=== PATIENT | female | born 1980 | race Caucasian/White ===

== ENCOUNTER 2019-01-15 20:43 | Emergency (ER) | payer BC, OTHER ==
[2019-01-15] MEDS ORDERED: MAGNE/ALUM HYDROXD 30 ML UCUP ONE (21:12)
[2019-01-15] MEDS ORDERED: LIDOCAINE VISCOUS 2% SOLN 15 ML UDC ONE (21:12)
[2019-01-15 21:32] LABS: Absolute Lymphocytes (CBC) 1.5 K/uL (0.7-4.9); Basophils % 0.4 % (0-1.3); Hematocrit 36.2 % (36.0-45.0); Lymphocytes % 21.6 % (15.3-44.8); MPV 10.6 fL (7.6-11.3); RBC Red Blood Cell Count 4.09 M/uL (3.86-4.86)
[2019-01-15 21:41] LABS: Urine Blood NEGATIVE (NEG); Urine Glucose NEGATIVE (NEG); Urine Protein NEGATIVE (NEG); Urine pH 6.5 (5.0-7.0)
[2019-01-15 21:43] LABS: ALT/SGPT 20 U/L (12-78); AST/SGOT 13 U/L (15-37); Alkaline Phosphatase 88 U/L (45-117); BUN Blood Urea Nitrogen 8 mg/dL (7-18); Bicarbonate 27 mmol/L (21-32); Bilirubin Direct < 0.1 mg/dL (0-0.2); Bilirubin Total 0.3 mg/dL (0.2-1.0); Glucose Level 91 mg/dL (74-106); Lipase 195 U/L (73-393); Potassium 3.7 mmol/L (3.5-5.1); Protein, Total 7.4 g/dL (6.4-8.2); Sodium Level 140 mmol/L (136-145)
[2019-01-15] MEDS ORDERED: MORPHINE 4 MG/ML SYR ONE ×2 (21:43→23:17)
[2019-01-15] MEDS ORDERED: ONDANSETRON 4 MG/2 ML VIAL ONE (21:43)
[2019-01-15 21:44] LABS: Urine Bacteria 20-50 /HPF (<20); Urine Culture Reflex Order REFLEXED; Urine RBC <5 /HPF (NONE SEEN)
--- NOTE | 2019-01-16 02:02 | EDPHYS ---
Physician Documentation [facility] Name: Wendy Altman Age: 38 yrs Sex: Female : 1980 Arrival Date: 01/15/2019 Time: 20:47 Bed 28 Private MD: ED Physician Hasmukh Garland HPI: 01/15 21:20 This 38 yrs old Female presents to ER via Ambulatory with complaints of rn Abdominal Pain. 21:20 The patient presents with abdominal pain in the right upper quadrant. Onset: The rn symptoms/episode began/occurred this morning. The symptoms do not radiate. Associated signs and symptoms: Pertinent negatives: nausea and vomiting, blood in stools, chest pain, constipation, diarrhea, dysuria, fever, shortness of breath. Modifying factors: The symptoms are alleviated by nothing, the symptoms are aggravated by touching the area. Severity of pain: At its worst the pain was moderate in the emergency department the pain has improved. The patient has experienced similar episodes in the past. Reports RUQ abd pain, began earlier today, has had a few similar episodes in past but not as bad as today, also has acid reflux and doesn't take medication regularly. NO fever/vomiting/diarrhea. . 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 - Social history:: Smoking status: Patient/guardian denies using tobacco. - Ebola Screening: : No symptoms or risks identified at this time. - Family history:: not pertinent. - Hospitalizations: : No recent hospitalization is reported. ROS: 21:21 Constitutional: Negative for fever, chills, and weight loss, Eyes: Negative for injury, rn pain, redness, and discharge, Neck: Negative for injury, pain, and swelling, Cardiovascular: Negative for chest pain, palpitations, and edema, Respiratory: Negative for shortness of breath, cough, wheezing, and pleuritic chest pain, Abdomen/GI: + abd pain Back: Negative for injury and pain, : Negative for injury, bleeding, discharge, and swelling, MS/Extremity: Negative for injury and deformity, Skin: Negative for injury, rash, and discoloration, Neuro: Negative for headache, weakness, numbness, tingling, and seizure. Exam: 21:21 Constitutional: This is a well developed, well nourished patient who is awake, alert, rn pacing room holding stomach Head/Face: Normocephalic, atraumatic. ENT: MMM Cardiovascular: Regular rate and rhythm. No pulse deficits. Respiratory: No increased work of breathing, no retractions or nasal flaring. Abdomen/GI: soft, + epigastric and RUQ tenderness, no rebound, neg mauricio MS/ Extremity: Pulses equal, no cyanosis. Neurovascular intact. Full, normal range of motion. Equal circumference. Neuro: Awake and alert, GCS 15, oriented to person, place, time, and situation. Cranial nerves II-XII grossly intact. Motor strength 5/5 in all extremities. Sensory grossly intact. Cerebellar exam normal. Normal gait. Vital Signs: 20:50 BP 153 / 107; Pulse 74; Resp 18; Temp 98.5(O); Pulse Ox 98% on R/A; Weight 74.84 kg; lp1 Height 5 ft. 0 in. (152.40 cm); Pain 7/10; 21:58 BP 147 / 90; Pulse 72; Resp 17; Pulse Ox 97% on R/A; rv 23:42 BP 140 / 76; Pulse 65; Resp 16; Pulse Ox 96% on R/A; rv 01/16 00:39 BP 163 / 95; Pulse 64; Resp 15; Pulse Ox 99% on R/A; rv 02:10 BP 164 / 99; Pulse 66; Resp 14 S; Temp 98.4(O); Pulse Ox 99% on R/A; bb 01/15 20:50 Body Mass Index 32.22 (74.84 kg, 152.40 cm) lp1 MDM: 01/15 20:57 Patient medically screened. rn 01/16 01:57 Differential diagnosis: cholecystitis, Cholelithiasis, gastritis, gastroesophageal rn reflux disease, non-specific abd pain, pancreatitis, Peptic Ulcer Disease. Data reviewed: vital signs, nurses notes, lab test result(s), radiologic studies, CT scan, ultrasound, and as a result, I will discharge patient. Counseling: I had a detailed discussion with the patient and/or guardian regarding: the historical points, exam findings, and any diagnostic results supporting the discharge/admit diagnosis, lab results, radiology results, the need for outpatient follow up, to return to the emergency department if symptoms worsen or persist or if there are any questions or concerns that arise at home. Response to treatment: the patient's symptoms have markedly improved after treatment, and as a result, I will discharge patient. Special discussion: Based on the patient's Hx, exam, and Dx evaluation, there is no indication for emergent surgery or inpatient Tx. It is understood by the patient/guardian that if the Sx's persist or worsen they need to return immediately for re-evaluation. I discussed with the patient/guardian in detail that at this point there is no indication for admission to the hospital. It is understood, however, that if the symptoms persist or worsen the patient needs to return immediately for re-evaluation. Based on the history and exam findings, there is no indication for further emergent testing or inpatient evaluation. I discussed with the patient/guardian the need to see the primary care provider for further evaluation of the symptoms. ED course: No acute findings on labs or u/s or CT abdomen. + indeterminate left renal mass, recommend f/u for further eval. Gallbladder normal appearing without stones or infection. Epigastric pain most likely gastritis or acid related given has had it before and does not take regular medication.. 01/15 21:03 Order name: Basic Metabolic Panel; Complete Time: 22:19 rn 01/15 21:03 Order name: CBC with Diff; Complete Time: 22:19 rn 01/15 21:03 Order name: Creatinine for Radiology; Complete Time: 22:19 rn 01/15 21:03 Order name: Hepatic Function; Complete Time: 22:19 rn 01/15 21:03 Order name: Lipase; Complete Time: 22:19 rn 01/15 21:03 Order name: Urine Microscopic Only; Complete Time: 22:19 rn 01/15 21:03 Order name: US Abdomen Limited rn 01/15 21:35 Order name: Urine Dipstick--Ancillary (enter results); Complete Time: 22:19 cm6 01/15 21:35 Order name: Urine --Ancillary (enter results); Complete Time: 22:19 cm6 01/15 21:45 Order name: Urine Culture EDDE 01/15 23:16 Order name: CT Abd/Pelvis - IV Contrast Only rn 01/15 21:03 Order name: IV Saline Lock; Complete Time: 21:13 rn 01/15 21:03 Order name: Labs collected and sent; Complete Time: 21:13 rn 01/15 21:03 Order name: Urine Test (obtain specimen); Complete Time: 21:13 rn 01/15 21:03 Order name: Urine Dipstick-Ancillary (obtain specimen); Complete Time: 21:13 rn Administered Medications: 01/15 21:15 Drug: GI Cocktail without - (Maalox Suspension 30 ml, Lidocaine Liquid 2 % 15 mg2 ml) Route: PO; 23:17 Follow up: Response: Pain is unchanged, physician notified rv 21:48 Drug: morphine 4 mg {Note: rass 0.} Route: IVP; Site: left antecubital; rv 23:18 Follow up: Response: No adverse reaction; Pain is unchanged, physician notified; RASS: rv Alert and Calm (0) 21:48 Drug: Zofran 4 mg Route: IVP; Site: left antecubital; rv 23:18 Follow up: Response: No adverse reaction rv 23:20 Drug: morphine 4 mg {Note: RASS 0.} Route: IVP; Site: left antecubital; rv 01/16 00:47 Follow up: Response: Pain is decreased rv 00:47 Follow up: Response: RASS: Alert and Calm (0) rv Disposition: 01/16/19 02:00 Discharged to Home. Impression: Gastritis, unspecified, without bleeding, Upper abdominal pain, unspecified, Unspecified ovarian cysts, Left renal mass. - Condition is Stable. - Discharge Instructions: Abdominal Pain, Adult, Gastritis, Adult, Ovarian Cyst, Renal Mass. - Prescriptions for Tylenol- Codeine #3 300-30 mg Oral Tablet - take 1 tablet by ORAL route every 6 hours As needed; 15 tablet. - Medication Reconciliation Form, Thank You Letter, Antibiotic Education, Prescription Opioid Use, Work release form, Family Work Release form. - Follow up: Grabiel Banks MD; When: As needed; Reason: Recheck today's complaints, Re-evaluation by your physician. - Problem is new. - Symptoms have improved. Signatures: Dispatcher [employer] EDBrittny Song RN RN bb Nieto, Roman, MD MD rn Pena, Laura, RN RN lp1 Ruddy Suresh, RN RN mg2 Virgil Griffin, RN RN rv Corrections: (The following items were deleted from the chart) 02:11 02:00 01/16/2019 02:00 Discharged to Home. Impression: Gastritis, unspecified, without bb bleeding; Upper abdominal pain, unspecified; Unspecified ovarian cysts; Left renal mass. Condition is Stable. Forms are Medication Reconciliation Form, Thank You Letter, Antibiotic Education, Prescription Opioid Use. Follow up: Grabiel Banks; When: As needed; Reason: Recheck today's complaints, Re-evaluation by your physician. Problem is new. Symptoms have improved. rn
--- NOTE | 2019-01-16 02:02 | ER ---
Nurse's Notes [facility] Name: Wendy Altman Age: 38 yrs Sex: Female : 1980 Arrival Date: 01/15/2019 Time: 20:47 Bed 28 Private MD: Diagnosis: Gastritis, unspecified, without bleeding;Upper abdominal pain, unspecified;Unspecified ovarian cysts;Left renal mass Presentation: 01/15 20:48 Presenting complaint: Patient states: RUQ abdominal pain x 4 days, "It goes away and lp1 then it comes back"; States feeling light headed. Transition of care: patient was not received from another setting of care. Onset of symptoms was January 15, 2019. Risk Assessment: Do you want to hurt yourself or someone else? Patient reports no desire to harm self or others. Initial Sepsis Screen: Does the patient meet any 2 criteria? No. Patient's initial sepsis screen is negative. Does the patient have a suspected source of infection? No. Patient's initial sepsis screen is negative. Care prior to arrival: None. 20:48 Method Of Arrival: Ambulatory lp1 20:48 Acuity: AMOL 3 lp1 Triage Assessment: 21:23 General: Behavior is calm, cooperative. 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 - Social history:: Smoking status: Patient/guardian denies using tobacco. - Ebola Screening: : No symptoms or risks identified at this time. - Family history:: not pertinent. - Hospitalizations: : No recent hospitalization is reported. Screenin:50 Abuse screen: Denies threats or abuse. Denies injuries from another. Nutritional lp1 screening: No deficits noted. Tuberculosis screening: No symptoms or risk factors identified. Fall Risk None identified. Assessment: 21:20 General: Appears in no apparent distress. comfortable. rv 21:22 Pain: Complains of pain in right upper quadrant. Neuro: Level of Consciousness is rv awake, alert, obeys commands, Oriented to person, place, time, situation. Cardiovascular: Patient's skin is warm and dry. Respiratory: Airway is patent. GI: Bowel sounds present X 4 quads. Abd is soft and non tender X 4 quads. : No signs and/or symptoms were reported regarding the genitourinary system. EENT: No signs and/or symptoms were reported regarding the EENT system. Derm: Skin is intact, is healthy with good turgor. Musculoskeletal: No signs and/or symptoms reported regarding the musculoskeletal system. 23:42 Reassessment: Patient appears in no apparent distress at this time. Patient and/or rv family updated on plan of care and expected duration. Pain level reassessed. Patient is alert, oriented x 3, equal unlabored respirations, skin warm/dry/pink. PAIN IS UNCHANGED. REFERRED TO DR GARLAND. GIVEN SECOND DOSE OF MORPHINE. DR GARLAND DECIDED TO DO CT SCAN, EXPLAINED TO PATIENT AND RELATIVE. AWAITING CT SCAN AT THE MOMENT. 01/16 00:23 Reassessment: PRESENT IV ON THE LEFT AC IS NOT WORKING. STARTED ANOTHER IV ON THE RIGHT rv FOREARM WHILE IN THE CT SCAN. 02:08 Reassessment: Patient is alert, oriented x 3, equal unlabored respirations, skin bb warm/dry/pink. Dr Garland at bedside for discussion of findings and recommendations pt to be discharged home with RX x1 and follow-up for further evaluation and treatment with PCP. Pt verbalized understanding of and agrees to plan of care discharge instructions given pt ambulated with steady gait to exit accompanied by spouse. Vital Signs: 01/15 20:50 BP 153 / 107; Pulse 74; Resp 18; Temp 98.5(O); Pulse Ox 98% on R/A; Weight 74.84 kg; lp1 Height 5 ft. 0 in. (152.40 cm); Pain 7/10; 21:58 BP 147 / 90; Pulse 72; Resp 17; Pulse Ox 97% on R/A; rv 23:42 BP 140 / 76; Pulse 65; Resp 16; Pulse Ox 96% on R/A; rv 01/16 00:39 BP 163 / 95; Pulse 64; Resp 15; Pulse Ox 99% on R/A; rv 02:10 BP 164 / 99; Pulse 66; Resp 14 S; Temp 98.4(O); Pulse Ox 99% on R/A; bb 01/15 20:50 Body Mass Index 32.22 (74.84 kg, 152.40 cm) lp1 ED Course: 01/15 20:47 Patient arrived in ED. cf2 20:49 Triage completed. lp1 20:49 Arm band placed on right wrist. lp1 20:57 Hasmukh Garland MD is Attending Physician. rn 21:04 Virgil Griffin RN is Primary Nurse. rv 21:22 Patient has correct armband on for positive identification. Bed in low position. Call rv light in reach. Side rails up X 1. Pulse ox on. NIBP on. 21:23 Inserted saline lock: 22 gauge in right antecubital area, using aseptic technique. rv Blood collected. 21:37 US Abdomen Limited In Process Unspecified. EDMS 23:[address] via wheelchair. eh 01/16 00:18 Radiology exam delayed due to IV insertion attempt and/or patient not having eh appropriate IV at this time. 00:24 Inserted saline lock: 22 gauge in right forearm, using aseptic technique. rv 00:25 CT completed. Patient tolerated procedure well. eh 00:35 Patient moved back from CT. eh 00:40 CT Abd/Pelvis - IV Contrast Only In Process Unspecified. EDMS 01:59 Grabiel Banks MD is Referral Physician. rn 02:10 No provider procedures requiring assistance completed. IV discontinued, intact, bb bleeding controlled, No redness/swelling at site. Pressure dressing applied. Administered Medications: 01/15 21:15 Drug: GI Cocktail without - (Maalox Suspension 30 ml, Lidocaine Liquid 2 % 15 mg2 ml) Route: PO; 23:17 Follow up: Response: Pain is unchanged, physician notified rv 21:48 Drug: morphine 4 mg {Note: rass 0.} Route: IVP; Site: left antecubital; rv 23:18 Follow up: Response: No adverse reaction; Pain is unchanged, physician notified; RASS: rv Alert and Calm (0) 21:48 Drug: Zofran 4 mg Route: IVP; Site: left antecubital; rv 23:18 Follow up: Response: No adverse reaction rv 23:20 Drug: morphine 4 mg {Note: RASS 0.} Route: IVP; Site: left antecubital; rv 01/16 00:47 Follow up: Response: Pain is decreased rv 00:47 Follow up: Response: RASS: Alert and Calm (0) rv Outcome: 02:00 Discharge ordered by . rn 02:10 Discharged to home ambulatory, with family. bb 02:10 Condition: stable 02:10 Discharge instructions given to patient, Instructed on discharge instructions, follow up and referral plans. medication usage, Demonstrated understanding of instructions, follow-up care, medications, Prescriptions given X 1. 02:11 Patient left the ED. bb Signatures: Dispatcher [employer] EDMS Alfredo Cruz Brittny Aguilera RN RN bb Hasmukh Garland MD MD rn Pena, Laura RN RN lp1 Ruddy Suresh RN RN mg2 Virgil Griffin RN RN rv Jarred Solomon cf2 Corrections: (The following items were deleted from the chart) 01/15 20:50 20:50 LMP N/A - Irregular menses lp1 lp1
[2019-01-16 03:41] VITALS: O2SAT 99
[2019-01-16 03:42] VITALS: BP 164/99; TEMP 98.4
--- NOTE | 2019-01-16 11:23 | RAD REPORT ---
EXAM DESCRIPTION: US - Abdomen Exam Limited - 01/15/2019 9:37 pm CLINICAL HISTORY: RUQ abd pain, rule out cholecystitis TECHNIQUE: Real-time and ayala scale sonographic imaging of the gallbladder was performed. COMPARISON: None available for comparison FINDINGS: Liver: Unremarkable as visualized Gallbladder: No gallstones, wall thickening, or pericholecystic fluid. Common bile duct: 2 mm in diameter. There is no intrahepatic biliary ductal dilatation. Free fluid: None IMPRESSION: No sonographic evidence of cholelithiasis or acute cholecystitis. Electronically signed by: Remi Dominguez MD 01/15/2019 10:41 PM MID LEVEL DEVELOPER Due to temporary technical issues with the PACS/Fluency reporting system, reports are being signed by the in house radiologist as a courtesy to ensure prompt reporting. The interpreting radiologist is f ully responsible for the content of the report.
--- NOTE | 2019-01-16 11:44 | RAD REPORT ---
EXAM DESCRIPTION: CT - Abdomen Pelvis W Contrast - 01/16/2019 2:36 am CLINICAL HISTORY: ABD PAIN TECHNIQUE: Contiguous axial images obtained through the abdomen and pelvis following the uneventful administration of IV contrast. Coronal and sagittal reformatted images were provided. This exam was performed according to our departmental dose-optimization program, which includes autom ated exposure control, adjustment of the mA and/or kV according to patient size and/or use of iterati ve reconstruction technique. COMPARISON: Correlation is made with gallbladder ultrasound dated 01/15/2019 FINDINGS: Lung bases: Minimal patchy bibasilar groundglass opacities. Liver: Unremarkable Gallbladder and biliary system: Unremarkable Pancreas: Unremarkable Spleen: Unremarkable Adrenals: Unremarkable Kidneys: Normal renal cortical enhancement. 2 x 1.8 x 1.8 cm mildly heterogeneous enhancing exophytic mass at the lower pole of the left kidney. No calculi. No hydronephrosis. Bowel: Moderate stool. No obstruction. No appreciable mucosal thickening. Appendix: Normal caliber appendix. No findings to suggest acute appendicitis. Urinary bladder: The urinary bladder is mildly distended. Reproductive: Unremarkable as visualized Lymph nodes: 1.7 x 1.6 x 1.5 cm right ovarian corpus luteal cyst. 1.6 x 1.2 x 1.3 cm left ovarian cor pus luteal cyst. The uterus is unremarkable as visualized. Peritoneum: No focal fluid collection. No free air. Vessels: No abdominal aortic aneurysm. Abdominal wall: Small fat-containing umbilical hernia. Bones: Mild multilevel spondylosis. No acute fracture. IMPRESSION: 1. No acute inflammatory process identified within the abdomen and pelvis. 2. 2 cm indeterminate left renal mass. Surgical consult is recommended. 3. Multiple ovarian cysts: 1.7 cm right ovarian corpus luteum cyst; 1.6 cm left ovarian corpus lute um cyst. Most severe: 1.7 cm corpus luteum ovarian cyst. No follow-up imaging is recommended. Refer ence: J Am Nadia Radiol 2013;10:[id number] 4. Other findings as above. Electronically signed by: Remi Dominguez MD 01/16/2019 1:00 AM FOUNTAIN DISPENSER Due to temporary technical issues with the PACS/Fluency reporting system, reports are being signed by the in house radiologist as a courtesy to ensure prompt reporting. The interpreting radiologist is f ully responsible for the content of the report.
--- OUTSIDE RECORDS SUMMARY | 2019-01-21 00:12 | XMS REPORT ---
:1980 Author Organization [employer] Care Team Providers Name Role Phone Rohit Belle Provider Role Unavailable Allergies, Adverse Reactions, Alerts Substance Reaction Event Type N.K.D.A. Info Not Available Non Drug Allergy Problems Problem Type Condition Code Onset Dates Condition Status Assessment Viral upper respiratory tract J06.9 Active infection Problem Hyperlipidemia E78.5 Active Problem Benign hypertension I10 Active Problem Allergic rhinitis, unspecified J30.9 Active seasonality, unspecified trigger Problem BMI 33.0-33.9,adult Z68.33 Active Problem Allergic rhinitis, seasonal J30.2 Active Problem Acute pharyngitis, unspecified J02.9 Active Medications Medication Code Code Instructions Start End Status Dosage System Date Date Loratadine [facility] 65516105814 10 MG Orally Active 1 tablet Once a day Fluticasone [facility] 45852246938 50 MCG/ACT Apr 24, Active 1 spray in Propionate Nasally Once a 2018 each day nostril Iron [facility] 41243550408 325 (65 Fe) MG Active 1 tablet Orally twice a week Tramadol HCl ND 55580132641 50 MG Orally Active 1 tablet one or twice a as needed week Carbinoxamine ND 63139725349 4 MG Orally Dec 19, Dec 29, Active 1 tablet Maleate Three times a 2018 2018 as needed day Lisinopril-Hydroc ND 54567103875 20-12.5 MG Active 1 tablet hlorothiazide Orally Once a day Vitamin C ND 18493355058 500 MG Orally Active not defined Results No Known Results Summary Purpose [employer] Submission
== END 2019-01-16 02:11 | disposition home or self-care (01) ==
LOC: ER 20:43
DX: K29.70 Gastritis, unspecified, without bleeding (principal); N83.209 Unspecified ovarian cyst, unspecified side; N28.9 Disorder of kidney and ureter, unspecified; I10 Essential (primary) hypertension
CPT/HCPCS: 87088; 85025; 87086; 80048; 36415; 81025; 80076; 83690; 74177; 76705; 96375; 96374; 99284; Q9967; J2405; 81003; 81015